=== PATIENT | male | born 1985 | race Caucasian/White ===

== ENCOUNTER 2021-07-13 09:57 | Outpatient (CLI) | payer OTHER ==
--- NOTE | 2021-07-13 12:05 | MRI Report ---
PROCEDURE: Cervical Spine W/O INDICATIONS: CERVICALGIA TECHNIQUE: Noncontrast sagittal T1 spin echo and T2 fast spin echo, sagittal STIR, foraminal oblique sagittal T2 fast spin echo, and axial gradient echo and T2 fast spin echo through the cervical spine. COMPARISON: None. FINDINGS: Image quality: Motion artifact is noted. Alignment and Curvature: There is normal bony alignment. Bone Marrow: Marrow demonstrates normal overall signal. Spinal Cord: Visualized spinal cord has normal size and signal. No cerebellar tonsillar herniation. Paraspinous Soft Tissues: No paravertebral masses. Prevertebral soft tissues are normal in thicknes s. C2-C3: No significant abnormality is seen. C3-C4: The disc height and disc signal are well preserved. Mild disc osteophyte complex is seen. Mild to moderate facet hypertrophy is seen. Moderate bilateral neural foraminal narrowing is seen. No significant central canal narrowing is seen. C4-C5: Mild loss of disc height and disc signal are seen. Moderate disc osteophyte complex is seen. There is a central/left disc protrusion. Moderate facet hypertrophy is seen. There is moderate ri ght-sided and at least moderate left-sided neuroforaminal narrowing. Moderate central canal narrowin g is seen. C5-C6: The disc height is well-preserved. There is loss of disc signal seen. Moderate disc osteoph yte complex is seen, with a relatively prominent central/left disc osteophyte protrusion, as on serie s 701 image 12. Moderate facet hypertrophy is seen. Moderate to severe bilateral neuroforaminal chriss rowing can be seen. Moderate to severe central canal narrowing is seen, with associated ventral cord flattening. C6-C7: The disc height is well-preserved. There is loss of disc signal seen. Moderate disc osteophy te complex is seen. There is a mild central/left disc osteophyte protrusion seen. Moderate facet hy pertrophy is seen. There is at least moderate left-sided and moderate to severe right-sided neurofor aminal narrowing. Moderate central canal narrowing is seen. There is minimal associated mass effect upon the ventral spinal cord. C7-T1: The disc height and disc signal are well preserved. Mild disc osteophyte complex is seen. There is mild right-sided and moderate left-sided facet hypertrophy seen. There is moderate left-side d and no significant right-sided neuroforaminal narrowing. The central canal is widely patent. 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 At this level, there is moderate to severe central canal narrowing, with associat ed ventral cord flattening. Moderate to severe bilateral neuroforaminal narrowing can also be seen at this level. Reviewed by: Shai Evans MD on 07/13/2021 11:04 AM [facility]RIS Approved by: Shai Evans MD on 07/13/2021 11:04 AM NORRIS Station ID: [id number]
== END 2021-07-13 09:58 | disposition home or self-care (01) ==
LOC: DI 09:57
DX: M47.812 Spondylosis without myelopathy or radiculopathy, cervical region (principal); M50.321 Other cervical disc degeneration at C4-C5 level; M48.02 Spinal stenosis, cervical region; M50.221 Other cervical disc displacement at C4-C5 level; M47.813 Spondylosis without myelopathy or radiculopathy, cervicothoracic region